=== PATIENT | female | born 1975 | race African-American/Black ===

== ENCOUNTER 2017-01-26 15:44 | Inpatient (IN) | payer OTHER ==
[2017-01-26] MEDS ORDERED: HumuLIN R SC PRN (16:16)
[2017-01-26 18:33] LABS: BILIRUBIN,URINE NEGATIVE (NEGATIVE); BLOOD/HEMOGLOBIN,URINE NEGATIVE (NEGATIVE); GLUCOSE, URINE NEGATIVE (NEGATIVE); KETONES,URINE NEGATIVE (NEGATIVE); LEUKOCYTE ESTERASE ,URINE NEGATIVE (NEGATIVE); NITRITES,URINE NEGATIVE (NEGATIVE); PROTEIN,URINE NEGATIVE (NEGATIVE); UROBILINOGEN,URINE NORMAL (NORMAL)
[2017-01-26 18:33] LABS: BASOPHILS # (AUTO) 0.1 X10^3/uL (0.0-0.1); BASOPHILS % (AUTO) 1.1 % (0.2-1.0); EOSINOPHILS % (AUTO) 0.9 % (0.9-2.9); HEMATOCRIT 33.7 % (36.0-47.0); LYMPHOCYTES # (AUTO) 1.6 X10^3/uL (1.3-2.9); LYMPHOCYTES % (AUTO) 29.2 % (21.0-51.0); MEAN CORPUSCULAR HEMOGLOBIN 25.7 pg (27.0-34.0); MEAN CORPUSCULAR HGB CONC 32.7 g/dL (33.0-35.0); MEAN CORPUSCULAR VOLUME 78.7 fL (80.0-100.0); MEAN PLATELET VOLUME 7.8 fL (7.4-11.0); MONOCYTES # (AUTO) 0.4 x10^3/uL (0.3-0.8); MONOCYTES % (AUTO) 7.2 % (0.0-13.0); NEUTROPHILS # (AUTO) 3.4 x10^3/uL (2.2-4.8); NEUTROPHILS % (AUTO) 61.6 % (42.0-75.0); PLATELET COUNT 318 X10^3/uL (150.0-450.0); RED BLOOD COUNT 4.28 X10^6/uL (3.5-5.4); RED CELL DISTRIBUTION WIDTH 16.1 % (11.6-16.5); WHITE BLOOD COUNT 5.6 X10^3/uL (3.6-10.0)
[2017-01-26 18:39] LABS: APPEARANCE,URINE HAZY (CLEAR); BACTERIA,URINE TRACE /HPF (NEGATIVE); COLOR,URINE YELLOW (YELLOW); RBC,URINE 0-2 /HPF (NEGATIVE); SQUAMOUS EPITHELIAL CELL,UR FEW /HPF (NEGATIVE)
[2017-01-26 18:46] LABS: ALANINE AMINOTRANSFERASE 32 Units/L (12-78); ALBUMIN 3.3 g/dL (3.4-5.0); ALKALINE PHOSPHATASE 58 Units/L (46-116); AMYLASE 66 Units/L (25-115); ASPARTATE AMINO TRANSFERASE 16 Units/L (15-37); BLOOD UREA NITROGEN 10 mg/dL (7-18); CALCIUM 8.8 mg/dL (8.5-10.1); CHLORIDE 105 mmol/L (98-107); COR CA(FOR HYPOALB) 9.4 mg/dL (8.5-10.1); GLUCOSE 90 mg/dL (65-99); LIPASE 174 Units/L (73-393); SODIUM 144 mmol/L (136-145); TOTAL PROTEIN 7.6 g/dL (6.4-8.2); eGFR BLACK RACES > 60 (>60); eGFR NON BLACK RACES > 60 (>60)
[2017-01-26] MEDS: PROTONIX INJ 40 MG VIAL IVP SCH ×2 (18:48→20:26)
[2017-01-26 18:55] LABS: HYPOCHROMASIA SLIGHT; PLATELET MORPHOLOGY COMMENT NORMAL (NORMAL)
[2017-01-26] MEDS ORDERED: POTASSIUM CHLORIDE LIQ 20 MEQ UDC PO PRN (19:10)
[2017-01-26] MEDS ORDERED: K-LYTE EFFERVESCENT PO PRN (19:10)
[2017-01-26] MEDS ORDERED: K-RIDER 10 MEQ/NS 100 ML 10 MEQ/100 ML BAG IV PRN (19:10)
[2017-01-26] MEDS: K-DUR TAB 20 MEQ PO PRN ×2 (20:26→23:20)
[2017-01-26] MEDS: NS 1000 ML 1,000 ML IV SCH (20:26)
[2017-01-26] MEDS: FLAGYL IV PREMIX 500 MG BAG 500 MG/100 ML BAG IV SCH (20:26)
[2017-01-26] MEDS ORDERED: NS 100 ML IV 100 ML IV ONE (20:37)
[2017-01-26] MEDS: ZOFRAN INJ 4 MG VIAL IVP PRN (22:01)
[2017-01-26] MEDS: MORPHINE SULFATE INJ 2 MG IVP PRN (22:01)
[2017-01-26] MEDS ORDERED: NS 500 ML IV 500 ML IV ONE (22:10)
[2017-01-26] MEDS: ZOSYN VIAL 4.5 GM 4.5 GM in NS 100 ML IV + SPIKE MINIBAG* 100 ML IV SCH (22:16)
--- NOTE | 2017-01-26 22:39 | CT ---
CT abdomen and pelvis without contrast Indication: Abdominal pain with nausea and vomiting. Bilateral flank pain. History of colitis. Technique: Helical images through the abdomen and pelvis after IV and oral contrast. Coronal and sag ittal reformats provided. Findings: Limited images through lower chest shows no acute abnormality. Review of bone windows show s mild SI joint sclerosis and minimal facet arthropathy. Abdomen: The liver, spleen, adrenal glands, pancreas, stomach and small bowel show no acute abnormal ity. Contrast passes through the small bowel without obstruction. The fat containing umbilical herni a is seen. The gallbladder is absent. The left kidney is normal. The right kidney shows calcificatio n in the right upper pole probably a 2 mm nonobstructing stone see sagittal image 48. The colon appe ars normal. The appendix is normal. No inflammatory change of the bowel is seen. Vasculature is norm al. Pelvis: Urinary bladder and rectum are normal. Uterus appears absent. No adnexal region lesion seen. Left ovarian cyst incidentally noted. Impression: 1. No inflammatory bowel process seen. The colon, appendix and small bowel appear normal. 2. Nonobstructing right upper pole renal stone noted. Reported By:
[2017-01-27] MEDS: FLAGYL IV PREMIX 500 MG BAG 500 MG/100 ML BAG IV SCH ×4 (02:32→20:35)
[2017-01-27] MEDS ORDERED: MAGNESIUM SULFATE 1 GM/100 mL PREMIX 1 GM/100 ML BAG IV ONE (02:32)
[2017-01-27] MEDS ORDERED: NS 100 ML IV + SPIKE MINIBAG* 100 ML IV ONE (05:41)
[2017-01-27] MEDS: ZOSYN VIAL 4.5 GM 4.5 GM in NS 100 ML IV + SPIKE MINIBAG* 100 ML IV SCH ×3 (06:01→21:10)
[2017-01-27] MEDS: NS 1000 ML 1,000 ML IV SCH ×3 (06:01→23:02)
[2017-01-27 06:17] LABS: BASOPHILS % (AUTO) 0.6 % (0.2-1.0); EOSINOPHILS # (AUTO) 0.1 x10^3/uL (0.0-0.2); HEMATOCRIT 34.4 % (36.0-47.0); HEMOGLOBIN 11.3 g/dL (12.0-16.0); LYMPHOCYTES # (AUTO) 1.7 X10^3/uL (1.3-2.9); LYMPHOCYTES % (AUTO) 33.8 % (21.0-51.0); MEAN CORPUSCULAR HEMOGLOBIN 25.8 pg (27.0-34.0); MEAN CORPUSCULAR HGB CONC 32.8 g/dL (33.0-35.0); MEAN CORPUSCULAR VOLUME 78.8 fL (80.0-100.0); MEAN PLATELET VOLUME 7.9 fL (7.4-11.0); MONOCYTES # (AUTO) 0.4 x10^3/uL (0.3-0.8); MONOCYTES % (AUTO) 9.1 % (0.0-13.0); NEUTROPHILS # (AUTO) 2.7 x10^3/uL (2.2-4.8); NEUTROPHILS % (AUTO) 55.5 % (42.0-75.0); PLATELET COUNT 321 X10^3/uL (150.0-450.0); RED BLOOD COUNT 4.36 X10^6/uL (3.5-5.4); RED CELL DISTRIBUTION WIDTH 15.9 % (11.6-16.5); WHITE BLOOD COUNT 4.9 X10^3/uL (3.6-10.0)
[2017-01-27 06:28] LABS: ALANINE AMINOTRANSFERASE 33 Units/L (12-78); ALBUMIN 3.2 g/dL (3.4-5.0); ALKALINE PHOSPHATASE 65 Units/L (46-116); ASPARTATE AMINO TRANSFERASE 15 Units/L (15-37); BLOOD UREA NITROGEN 9 mg/dL (7-18); CALCIUM 8.7 mg/dL (8.5-10.1); CARBON DIOXIDE 29.4 mmol/L (21-32); CHLORIDE 105 mmol/L (98-107); COR CA(FOR HYPOALB) 9.3 mg/dL (8.5-10.1); CREATININE 1.01 mg/dL (0.55-1.02); GLUCOSE 101 mg/dL (65-99); MAGNESIUM 2.1 mg/dL (1.7-2.9); SODIUM 143 mmol/L (136-145); TOTAL PROTEIN 7.4 g/dL (6.4-8.2); eGFR BLACK RACES > 60 (>60); eGFR NON BLACK RACES > 60 (>60)
[2017-01-27 07:06] LABS: HYPOCHROMASIA SLIGHT; PLATELET MORPHOLOGY COMMENT NORMAL (NORMAL)
[2017-01-27] MEDS: MORPHINE SULFATE INJ 2 MG IVP PRN (08:28)
[2017-01-27] MEDS: PROTONIX INJ 40 MG VIAL IVP SCH ×2 (08:28→20:35)
[2017-01-27] MEDS ORDERED: FIORICET TAB PO PRN (10:08)
[2017-01-27] MEDS ORDERED: LIORESAL PO PRN (10:08)
[2017-01-27] MEDS ORDERED: TOPIRAMATE PO SCH (10:15)
[2017-01-27] MEDS ORDERED: DOXAZOSIN MESYLATE PO SCH (10:15)
[2017-01-27] MEDS ORDERED: PATIENT'S HOME MEDICATION (Gabapentin [Gabapentin] 1 TAB) PO SCH (10:15)
[2017-01-27] MEDS ORDERED: PATIENT'S HOME MEDICATION (Losartan Potassium [Losartan Potassium] 1 TAB) PO SCH (10:15)
[2017-01-27] MEDS ORDERED: PATIENT'S HOME MEDICATION (Metformin Hcl [Metformin Hcl] 1 TAB) PO SCH (10:15)
[2017-01-27] MEDS ORDERED: PATIENT'S HOME MEDICATION (Loratadine [Loratadine] 1 TAB) PO SCH (10:15)
[2017-01-27] MEDS ORDERED: NORVASC TAB 5 MG PO SCH (11:00)
[2017-01-27 11:16] LABS: SERUM PREGNANCY TEST, QUAL NEGATIVE <10 mIU/mL
[2017-01-27 11:23] VITALS: BMI 45.5
[2017-01-27] MEDS ORDERED: GLUCOPHAGE ONE ×2 (12:59→20:26)
[2017-01-27] MEDS: PLAVIX PO SCH (13:06)
[2017-01-27] MEDS: CLARITIN PO SCH (13:06)
[2017-01-27] MEDS: NEURONTIN CAP 400 MG PO SCH ×2 (13:06→21:09)
[2017-01-27] MEDS: CARDURA PO SCH ×2 (13:06→20:37)
[2017-01-27] MEDS: COREG TAB 25 MG PO SCH ×2 (13:07→20:37)
[2017-01-27] MEDS: ASPIRIN EC 81 MG PO SCH (13:07)
[2017-01-27] MEDS: TOPAMAX PO SCH ×2 (13:08→20:37)
[2017-01-27] MEDS: LASIX PO SCH ×2 (13:09→20:38)
[2017-01-27] MEDS: ISOSORBIDE MONONITRATE ER PO SCH (13:09)
[2017-01-27] MEDS: ACTOS PO SCH (13:09)
[2017-01-27] MEDS: HYDROCHLOROTHIAZIDE 25 MG TAB PO SCH (13:09)
[2017-01-27] MEDS: COZAAR PO SCH (13:10)
[2017-01-27] MEDS: GLUCOPHAGE PO SCH ×2 (13:11→20:36)
[2017-01-27 14:53] LABS: CRYPTOSPORIDIUM PARVUM ANTIGEN NEGATIVE (NEGATIVE); GIARDIA LAMBLIA ANTIGEN NEGATIVE (NEGATIVE)
--- NOTE | 2017-01-27 16:03 | DR.H&P ---
H&P - History & Physical for Day of: H&P Date: 01/26/17 - Chief Complaint Chief Complaint: ABDOMINAL PAIN N/V/D - Allergies Allergies/Adverse Reactions: Allergies Allergy/AdvReac Type Severity Reaction Status Date / Time Prednisone Allergy Verified 01/26/17 18:38 - History of Present Illness History of Present Illness: PATIENT IS A 41-YEAR-OLD BLACK FEMALE WHO WAS ADMITTED FROM dR. Roya Cuevas'S OFFICE WITH COMPLAINTS OF ABDOMINAL PAIN NAUSEA VOMITING DIARRHEA. pATIENT HAD BEEN SEEN EARLIER IN THE WEEK AND DIAGNOSED WITH COLITIS AFTER ct SCAN REVEALING FINDINGS CONSISTENT WITH COLITIS. pATIENT HAS BEEN ON BY MOUTH ANTIBIOTICS cIPRO AND fLAGYL WITHOUT IMPROVEMENT. pATIENT ADMITTED FOR FURTHER EVALUATION, PAIN AND NAUSEA CONTROL, iv HYDRATION AND REPEAT ct SCAN WITH CONTRAST - Past Medical History Past Medical History: Diabetes, GERD, Hypertension Additional Medical History: MORBID OBESITY - Past Surgical History Surgical History: , Cholecystectomy, Hysterectomy - Family History Family Medical History: Hypertension - Social History Alcohol Use: None Drug Use: None - Medications Home Medications: Amlodipine Besylate [NORVASC 5 MG *] 1 tab PO DAILY 01/27/17 [History Confirmed 01/27/17] Aspirin EC [ASPIRIN EC 81 MG *] 1 tab PO DAILY 01/27/17 [History Confirmed 01/27] Atorvastatin Calcium [LIPITOR Tab 20 mg *] 1 tab PO HS 01/27/17 [History Confirmed 01/27/17] Baclofen 1 tab PO BID PRN 01/27/17 [History Confirmed 01/27/17] Wzeoapbnbc-Kryz-Mafzavfb [FIORICET 50/325/40 MG *] 1 tab PO QID PRN 01/27/17 [ History Confirmed 01/27/17] Carvedilol [COREG TAB 25 MG *] 1 tab PO BID 01/27/17 [History Confirmed 01/27/17 ] Ciprofloxacin HCl [CIPRO 500 MG TAB *] 1 tab PO BID 01/27/17 [History Confirmed 01/27/17] Clopidogrel Bisulfate [PLAVIX TAB 75 MG *] 1 tab PO DAILY 01/27/17 [History Confirmed 01/27/17] Clopidogrel Bisulfate [PLAVIX TAB 75 MG *] 1 tab PO DAILY 01/27/17 [History Confirmed 01/27/17] Doxazosin Mesylate [Doxazosin] 1 tab PO BID 01/27/17 [History Confirmed 01/27/17 ] Furosemide [LASIX TAB 40 MG *] 1 tab PO BID 01/27/17 [History Confirmed 01/27/17 ] Gabapentin 1 tab PO TID 01/27/17 [History Confirmed 01/27/17] Hydrochlorothiazide [HYDROCHLOROTHIAZIDE 25 MG TAB *] 2 tab PO DAILY 01/27/17 [ History Confirmed 01/27/17] Hydrocodone-Acet 7.5 mg/325 mg [NORCO 7.5 MG/325 MG *] 1 tab PO BID PRN [History Confirmed 01/27/17] Isosorbide Mononitrate ER [ISOSORBIDE MONOnitrate ER 60 MG *] 1 tab PO DAILY [History Confirmed 01/27/17] Loratadine 1 tab PO DAILY 01/27/17 [History Confirmed 01/27/17] Losartan Potassium 1 tab PO DAILY 01/27/17 [History Confirmed 01/27/17] Metformin HCl 1 tab PO BID 01/27/17 [History Confirmed 01/27/17] Methocarbamol [Robaxin 750 mg] 1 - 2 tab PO BID PRN 01/27/17 [History Confirmed 01/27/17] Metronidazole [FLAGYL 500 MG *] 1 tab PO TID 01/27/17 [History Confirmed ] Pioglitazone HCl [ACTOS 45 MG *] 1 tab PO DAILY 01/27/17 [History Confirmed ] Topiramate [Topamax] 1 tab PO BID 01/27/17 [History Confirmed 01/27/17] - Review of Systems Constitutional: No Symptoms Reported Eyes: No Symptoms Reported ENT: No Symptoms Reported Respiratory: No Symptoms Reported Cardiovascular: No Symptoms Reported Gastrointestinal: Nausea, Vomiting, Abdominal Pain, Diarrhea Genitourinary: No Symptoms Reported Musculoskeletal: No Symptoms Reported Skin: No Symptoms Reported Neurological: No Symptoms Reported - Physical Exam Vital Signs: Temperature 98.4 F Pulse Rate [Right Brachial] 76 Respiratory Rate 22 Blood Pressure [Right Arm] 178/90 O2 Sat by Pulse Oximetry 94 Oriented: Normal Eyes: Normal Ear: Normal Nose: Normal Throat: Normal Respiratory: Clear Throughout Cardiovascular: Normal : Normal Auscultation: Bowel Sounds: Increased Palpation: Normal Tenderness: LUQ, Epigastric Skin: Normal Musculoskeletal: Normal Psychiatric: Normal Speech Pattern: Clear, Appropriate - Assessment/Plan (1) Abdominal pain Qualifiers: Abdominal location: A Status: Acute Plan: ADMIT, IV ATBX THERAPY. PAIN AND NAUSEA CONTROL. STOOL STUDIES, CT ABD PELVIS WITH CONTRAST. REPEAT AM LABS, RESUME HOME MEDS. NPO (2) Nausea vomiting and diarrhea Status: Acute (3) Asthma Qualifiers: Asthma severity: A Asthma complication type: A Status: Chronic (4) Diabetes mellitus, type II Qualifiers: Diabetes mellitus complication status: D Diabetes mellitus complication detail: D Diabetic retinopathy severity: D Proliferative retinopathy type: P Diabetes mellitus macular edema: D Diabetes mellitus termite technician insulin use : D Laterality: L Chronic kidney disease stage: C Status: Chronic (5) GERD (gastroesophageal reflux disease) Qualifiers: Esophagitis presence: E Status: Chronic (6) HTN (hypertension) Qualifiers: Hypertension type: H Status: Chronic
--- NOTE | 2017-01-27 16:05 | PCM.PROG ---
Progress Note - Progress Note for Day of Date: 01/27/17 - Subjective Subjective: patient is a 41-year-old black female who was admitted one day ago with nausea vomiting diarrhea. Patient had a CT scan of the abdomen and pelvis without acute findings. Patient continues to complain of left upper quadrant and epigastric pain. Patient states diarrhea much improved, continued nausea. Plan repeat a.m. labs and continue hydration. Plan to advance diet as tolerated - Past Medical Family Social History Past Med/Fam/Surg Hx: No changes since H&P Allergies: Allergies Prednisone Allergy (Verified 01/26/17 18:38) - Review of Systems ROS: No change since H&P - Vital Signs and I&O's Vital Signs: Temperature 98.4 F Pulse Rate [Right Brachial] 76 Respiratory Rate 22 Blood Pressure [Right Arm] 178/90 O2 Sat by Pulse Oximetry 94 Intake and Output: Intake & Output 01/25/17 01/26/17 01/27/17 01/28/17 11:59 11:59 11:59 11:59 Intake Total 1508 1022 Balance 1508 1022 - Physical Exam Oriented: Normal Eyes: Normal Ear: Normal Nose: Normal Throat: Normal Cardiovascular: Normal : Normal Auscultation: Bowel Sounds: Increased Tenderness: LUQ, Epigastric Skin: Normal Musculoskeletal: Normal Psychiatric: Normal Speech Pattern: Clear, Appropriate - Laboratory and Diagnostics Result Diagrams: 01/27/17 05:36 01/27/17 11:03 Labs: 01/26/17 14:12 Stool - Final Laboratory WBC 4.9 X10^3/uL (3.6-10.0) 01/27/17 05:36 RBC 4.36 X10^6/uL (3.5-5.4) 01/27/17 05:36 Hgb 11.3 g/dL (12.0-16.0) L 01/27/17 05:36 Hct 34.4 % (36.0-47.0) L 01/27/17 05:36 MCV 78.8 fL (80.0-100.0) L 01/27/17 05:36 MCH 25.8 pg (27.0-34.0) L 01/27/17 05:36 MCHC 32.8 g/dL (33.0-35.0) L 01/27/17 05:36 RDW 15.9 % (11.6-16.5) 01/27/17 05:36 Plt Count 321 X10^3/uL (150.0-450.0) 01/27/17 05:36 Plt Count Comment Adequate (ADEQUATE) 01/27/17 05:36 MPV 7.9 fL (7.4-11.0) 01/27/17 05:36 Neut % 55.5 % (42.0-75.0) 01/27/17 05:36 Lymph % 33.8 % (21.0-51.0) 01/27/17 05:36 Day % 9.1 % (0.0-13.0) 01/27/17 05:36 Eos % 1.0 % (0.9-2.9) 01/27/17 05:36 Baso % 0.6 % (0.2-1.0) 01/27/17 05:36 Neut # 2.7 x10^3/uL (2.2-4.8) 01/27/17 05:36 Lymph # 1.7 X10^3/uL (1.3-2.9) 01/27/17 05:36 Day # 0.4 x10^3/uL (0.3-0.8) 01/27/17 05:36 Eos # 0.1 x10^3/uL (0.0-0.2) 01/27/17 05:36 Baso # 0.0 X10^3/uL (0.0-0.1) 01/27/17 05:36 Absolute Nucleated RBC 0.1 /100WBC 01/27/17 05:36 Plt Morphology Comment Normal (NORMAL) 01/27/17 05:36 RBC Morphology Abnormal (NORMAL) A 01/27/17 05:36 Hypochromasia Slight A 01/27/17 05:36 Macrocytosis Slight A 01/26/17 18:27 Sodium 143 mmol/L (136-145) 01/27/17 05:36 Corrected Sodium TNP 01/27/17 05:36 Potassium 3.8 mmol/L (3.5-5.1) 01/27/17 11:03 Chloride 105 mmol/L (98-107) 01/27/17 05:36 Carbon Dioxide 29.4 mmol/L (21-32) 01/27/17 05:36 BUN 9 mg/dL (7-18) 01/27/17 05:36 Creatinine 1.01 mg/dL (0.55-1.02) 01/27/17 05:36 Est GFR (MDRD) Af Amer > 60 (>60) 01/27/17 05:36 Est GFR (MDRD) Non-Af > 60 (>60) 01/27/17 05:36 Glucose 101 mg/dL (65-99) H 01/27/17 05:36 Calcium 8.7 mg/dL (8.5-10.1) 01/27/17 05:36 Corrected Calcium 9.3 mg/dL (8.5-10.1) 01/27/17 05:36 Magnesium 2.1 mg/dL (1.7-2.9) 01/27/17 05:36 Total Bilirubin 0.30 mg/dL (0.2-1.0) 01/27/17 05:36 AST 15 Units/L (15-37) 01/27/17 05:36 ALT 33 Units/L (12-78) 01/27/17 05:36 Alkaline Phosphatase 65 Units/L (46-116) 01/27/17 05:36 Total Protein 7.4 g/dL (6.4-8.2) 01/27/17 05:36 Albumin 3.2 g/dL (3.4-5.0) L 01/27/17 05:36 Globulin 4.2 g/dL (2.5-4.5) 01/27/17 05:36 Albumin/Globulin Ratio 0.8 Ratio (1.1-2.1) L 01/27/17 05:36 Amylase 66 Units/L (25-115) 01/26/17 18:27 Lipase 174 Units/L (73-393) 01/26/17 18:27 HCG, Qual Negative <10 mIU/mL 01/27/17 10:53 Specimen Type Clean catch urine 01/26/17 18:25 Urine Color Yellow (YELLOW) 01/26/17 18:25 Urine Appearance Hazy (CLEAR) 01/26/17 18:25 Urine pH 7.0 (5.0 - 8.0) 01/26/17 18:25 Ur Specific [place] 1.005 (1.000-1.030) 01/26/17 18:25 Urine Protein Negative (NEGATIVE) 01/26/17 18:25 Urine Glucose (UA) Negative (NEGATIVE) 01/26/17 18:25 Urine Ketones Negative (NEGATIVE) 01/26/17 18:25 Urine Occult Blood Negative (NEGATIVE) 01/26/17 18:25 Urine Nitrite Negative (NEGATIVE) 01/26/17 18:25 Urine Bilirubin Negative (NEGATIVE) 01/26/17 18:25 Urine Urobilinogen Normal (NORMAL) 01/26/17 18:25 Ur Leukocyte Esterase Negative (NEGATIVE) 01/26/17 18:25 Urine RBC 0-2 /HPF (NEGATIVE) 01/26/17 18:25 Urine WBC 0-2 /HPF (NEGATIVE) 01/26/17 18:25 Ur Squamous Epith Cells Few /HPF (NEGATIVE) 01/26/17 18:25 Urine Bacteria Trace /HPF (NEGATIVE) 01/26/17 18:25 Ur Culture Indicated? No/not indicated 01/26/17 18:25 Stool Description 250g brown unformed 01/26/17 14:42 Stl Occult Blood (IFOB) Negative (NEGATIVE) 01/26/17 14:42 Stl C. diff Tox B Gene Negative (NEGATIVE) 01/27/17 14:00 Stl C. diff [id number] Negative (NEGATIVE) 01/27/17 14:00 Cryptosporid parvum Ag Negative (NEGATIVE) 01/26/17 14:42 E. histolytica Antigen Negative (NEGATIVE) 01/26/17 14:42 Giardia lamblia Ag Negative (NEGATIVE) 01/26/17 14:42 - Plan (1) Abdominal pain Status: Acute Qualifiers: Abdominal location: A Plan: IV ATBX THERAPY. PAIN AND NAUSEA CONTROL. STOOL STUDIES, repeat am labs (2) Nausea vomiting and diarrhea Status: Acute (3) Asthma Status: Chronic Qualifiers: Asthma severity: A Asthma complication type: A (4) Diabetes mellitus, type II Status: Chronic Qualifiers: Diabetes mellitus complication status: D Diabetes mellitus complication detail: D Diabetic retinopathy severity: D Proliferative retinopathy type: P Diabetes mellitus macular edema: D Diabetes mellitus group home insulin use : D Laterality: L Chronic kidney disease stage: C (5) GERD (gastroesophageal reflux disease) Status: Chronic Qualifiers: Esophagitis presence: E Plan: patient's last EGD approximately one year ago. Patient also states she's had a gastric emptying study which was normal. Plan to continue PPI therapy and symptomatic management will advance diet as tolerated (6) HTN (hypertension) Status: Chronic Qualifiers: Hypertension type: H
[2017-01-27] MEDS: NORCO 7.5/325 MG TAB PO PRN (16:51)
[2017-01-27] MEDS: NORVASC TAB 10 MG PO SCH (16:51)
[2017-01-27] MEDS ORDERED: SNACK - Diabetic Appropriate PO SCH (20:00)
[2017-01-27] MEDS: ZOFRAN INJ 4 MG VIAL IVP PRN (20:15)
[2017-01-27] MEDS ORDERED: LIPITOR TAB 20 MG PO SCH (21:00)
[2017-01-28] MEDS: NS 1000 ML 1,000 ML IV SCH ×2 (04:02→10:52)
[2017-01-28] MEDS: FLAGYL IV PREMIX 500 MG BAG 500 MG/100 ML BAG IV SCH ×3 (04:02→15:12)
[2017-01-28] MEDS: ZOSYN VIAL 4.5 GM 4.5 GM in NS 100 ML IV + SPIKE MINIBAG* 100 ML IV SCH ×2 (06:06→13:32)
[2017-01-28] MEDS: NEURONTIN CAP 400 MG PO SCH ×2 (06:06→13:32)
[2017-01-28 06:19] LABS: BASOPHILS % (AUTO) 0.7 % (0.2-1.0); EOSINOPHILS % (AUTO) 0.8 % (0.9-2.9); HEMATOCRIT 33.3 % (36.0-47.0); LYMPHOCYTES # (AUTO) 1.2 X10^3/uL (1.3-2.9); LYMPHOCYTES % (AUTO) 24.6 % (21.0-51.0); MEAN CORPUSCULAR VOLUME 78.8 fL (80.0-100.0); MONOCYTES # (AUTO) 0.4 x10^3/uL (0.3-0.8); NEUTROPHILS # (AUTO) 3.2 x10^3/uL (2.2-4.8); NEUTROPHILS % (AUTO) 65.9 % (42.0-75.0); PLATELET COUNT 323 X10^3/uL (150.0-450.0); RED BLOOD COUNT 4.23 X10^6/uL (3.5-5.4); RED CELL DISTRIBUTION WIDTH 15.9 % (11.6-16.5); WHITE BLOOD COUNT 4.8 X10^3/uL (3.6-10.0)
[2017-01-28 06:33] LABS: ALANINE AMINOTRANSFERASE 30 Units/L (12-78); ALBUMIN 3.2 g/dL (3.4-5.0); ALKALINE PHOSPHATASE 64 Units/L (46-116); ASPARTATE AMINO TRANSFERASE 15 Units/L (15-37); BLOOD UREA NITROGEN 9 mg/dL (7-18); CALCIUM 8.5 mg/dL (8.5-10.1); CARBON DIOXIDE 29.7 mmol/L (21-32); CHLORIDE 103 mmol/L (98-107); COR CA(FOR HYPOALB) 9.1 mg/dL (8.5-10.1); COR NA(FOR HYPERGLY) 142 mmol/L (136-145); CREATININE 1.11 mg/dL (0.55-1.02); GLUCOSE 120 mg/dL (65-99); SODIUM 142 mmol/L (136-145); TOTAL PROTEIN 7.4 g/dL (6.4-8.2); eGFR BLACK RACES > 60 (>60); eGFR NON BLACK RACES 58 (>60)
[2017-01-28] MEDS: NORCO 7.5/325 MG TAB PO PRN (06:43)
[2017-01-28] MEDS ORDERED: GLUCOPHAGE ONE (09:22)
[2017-01-28] MEDS: ACTOS PO SCH (09:29)
[2017-01-28] MEDS: COREG TAB 25 MG PO SCH (09:29)
[2017-01-28] MEDS: PROTONIX INJ 40 MG VIAL IVP SCH (09:29)
[2017-01-28] MEDS: GLUCOPHAGE PO SCH (09:29)
[2017-01-28] MEDS: ASPIRIN EC 81 MG PO SCH (09:30)
[2017-01-28] MEDS: CARDURA PO SCH (09:30)
[2017-01-28] MEDS: NORVASC TAB 10 MG PO SCH (09:30)
[2017-01-28] MEDS: COZAAR PO SCH (09:30)
[2017-01-28] MEDS: TOPAMAX PO SCH (09:31)
[2017-01-28] MEDS: LASIX PO SCH (09:31)
[2017-01-28] MEDS: CLARITIN PO SCH (09:31)
[2017-01-28] MEDS: HYDROCHLOROTHIAZIDE 25 MG TAB PO SCH (09:31)
[2017-01-28] MEDS: ZOFRAN INJ 4 MG VIAL IVP PRN (09:33)
[2017-01-28] MEDS: PLAVIX PO SCH (09:33)
[2017-01-28] MEDS: K-DUR TAB 20 MEQ PO PRN (09:37)
[2017-01-28] MEDS: ISOSORBIDE MONONITRATE ER PO SCH (09:37)
[2017-01-28 14:07] VITALS: BP 116/56
== END 2017-01-28 16:05 | disposition home or self-care (01) | DRG 392 ==
LOC: MED/SURG 15:44 → OBS 17:00 → MED/SURG 01-27 16:35
PROVIDERS: ADMIT Internal Medicine; ATTEND Internal Medicine
DX: R10.84 Generalized abdominal pain (principal); R11.2 Nausea with vomiting, unspecified; R19.7 Diarrhea, unspecified; K21.9 Gastro-esophageal reflux disease without esophagitis; I10 Essential (primary) hypertension; E11.9 Type 2 diabetes mellitus without complications; J45.998 Other asthma
CPT/HCPCS: 36415; 74177; 80053; 81001; 82150; 82270; 83690; 83735; 84132; 84703; 85025; 87045; 87328; 87329; 87336; 87493; 87899; 93005; 93010; A4222; C9113; S0030; J2270; J2405; J2543